=== PATIENT | female | born 1965 | race Caucasian/White ===

== ENCOUNTER → 2020-02-15 | Outpatient (CLI) | payer BC ==
--- NOTE | 2020-02-15 11:45 | KCIC ---
Bilateral digital screening mammograms: Reason for examination: Routine screening. No previous exams for comparison. New baseline. Interpretation was made with the benefit of CAD. The skin and nipples show no abnormalities. No abnormal axillary lymph nodes are seen. The breast parenchyma is extremely dense. (Breast density: Category D.) There are nodular densities present in the lower inner quadrant of the right breast, in the lower inner quadrant of the left breast and dense nodular parenchyma in the upper outer quadrants bilaterally. This is especially true at the 10:00 B position of the right breast. Further evaluation with ultrasound is recommended. There are no suspicious calcifications seen. Impression: Dense breast parenchyma with nodular densities bilaterally. Recommend further evaluation with bilateral breast ultrasound. Your patient's mammogram demonstrates that she has dense breast tissue (breast density category C or D), which could hide abnormalities, and if she has other risk factors for breast cancer that have been identified, she might benefit from supplemental screening tests that may be suggested by you as her ordering physician. Dense breast tissue, in and of itself, is a relatively common condition. Therefore, this information is not provided to cause undue concern, but rather to raise your awareness and to promote discussion with your patient regarding the presence of other risk factors, in addition to dense breast tissue. Your patient's mammography results will be sent to her. BI-RAD Category 0: Incomplete. Needs additional imaging evaluation. "Our facility is accredited by the [employer] Mammography Program." This patient's information has been entered into a reminder system for the patient to be notified with the results of her examination and a target date for the next mammogram. Electronically signed by: aLkeisha Resendez MD (02/15/2020 11:42 AM) [id number]
== END | disposition home or self-care (01) ==
LOC: KCIC MAMMO 10:49
PROVIDERS: ATTEND Family Medicine
DX: Z12.31 Encounter for screening mammogram for malignant neoplasm of breast (principal); N64.89 Other specified disorders of breast
CPT/HCPCS: 77067

== ENCOUNTER → 2020-02-29 | Outpatient (CLI) | payer BC ==
--- NOTE | 2020-02-29 12:28 | KCIC ---
Bilateral breast ultrasound: Reason for examination: Dense nodular parenchyma on screening mammogram. Bilateral whole breast ultrasound including evaluation of all 4 quadrants and the retroareolar and axillary regions of both breasts was performed. In the right breast at the 3:00 position 6 cm from the nipple, there is a 1.1 cm hypoechoic nodule which is probably fibrocystic or fibroadenomatous and shows no abnormal vascularity. No other cystic or solid nodules are seen. There is some ductal ectasia. No abnormal appearing lymph nodes are seen in the right axilla. The left breast shows a small 9.8 mm hypoechoic nodule possibly fibroadenomatous in the 3:00 position 6 cm from the nipple. No other cystic or solid lesions are seen. No abnormal appearing lymph nodes are seen in the left axilla. Impression: Small benign-appearing fibrocystic and fibroadenomatous type nodules at the 3:00 position 6 cm from the nipple in the right breast and at the 3:00 position 6 cm from the nipple in the left breast. Recommend 6 month follow-up with ultrasound. BI-RADS Category 3: Probably Benign. "Our facility is accredited by the [employer] Mammography [employer]." This patient's information has been entered into a reminder system for the patient to be notified with the results of her examination and a target date for the next mammogram. Electronically signed by: Lakeisha Resendez MD (02/29/2020 12:25 PM) [email or web address]
== END | disposition home or self-care (01) ==
LOC: KCIC US 10:28
PROVIDERS: ATTEND Family Medicine
DX: N63.12 Unspecified lump in the right breast, upper inner quadrant (principal); N63.21 Unspecified lump in the left breast, upper outer quadrant
CPT/HCPCS: 76641

== ENCOUNTER → 2020-06-19 | Outpatient (CLI) | payer BC ==
[~2020-06-19] MED LIST: ATOR40TA59 PO; BROM500T PO; CELE200C PO; CHOL500050 PO; DEXT20TA2 PO; DEXT30CA6 PO; HYDR200T5 PO; LIFI1DRO EACHEYE; MULT-735 PO; TOCI162P SQ; TRAM50TA PO; [UNRECOGNIZED DRUG - OTHER]; tumeric
== END ==
LOC: LAB 10:47
PROVIDERS: ATTEND Orthopaedic Surgery
DX: Z01.812 Encounter for preprocedural laboratory examination (principal); Z20.828 Contact with and (suspected) exposure to other viral communicable diseases
CPT/HCPCS: U0003

== ENCOUNTER 2020-06-22 06:05 | Day surgery (SDC) | payer BC ==
[~2020-06-22] VITALS: Ht 167.6 cm; Wt 158.8 kg
[~2020-06-22 06:05] MED LIST changes: -TRAM50TA PO
[2020-06-22] MEDS ORDERED: ONDANSETRON PF 4 MG/2 ML VIAL. ONE (06:28)
[2020-06-22] MEDS ORDERED: LIDOCAINE 2% PF 5 ML VIAL. ONE (06:28)
[2020-06-22] MEDS ORDERED: DEXAMETHASONE SOD PHOS 4 MG/ML VIAL ONE (06:28)
[2020-06-22] MEDS ORDERED: PROPOFOL 10 MG/ML (20ML) VIAL. IV ONE (06:28)
[2020-06-22] MEDS ORDERED: ONDANSETRON PF 4 MG/2 ML VIAL. IV PRN (07:00)
[2020-06-22] MEDS ORDERED: PROCHLORPERAZINE 10 MG/2 ML VIAL. IV PRN (07:00)
[2020-06-22] MEDS ORDERED: fentaNYL PF VIAL 100 MCG/2 ML VIAL IV PRN ×2 (07:00)
[2020-06-22] MEDS ORDERED: HYDROmorphone 2 MG/ML VIAL IV PRN (07:00)
[2020-06-22] MEDS ORDERED: LIDOCAINE 1% PF 2 ML VIAL. ID PRN (07:00)
[2020-06-22] MEDS ORDERED: IV RINGERS,LACTATED 1000ML 1,000 ML IV SCH (07:00)
[2020-06-22] MEDS ORDERED: LIDOCAINE 1% Multi-Dose 20 ML VIAL. ONE (07:11)
[2020-06-22] MEDS ORDERED: MIDAZOLAM HCL/PF 2 MG/2 ML VIAL. ONE (07:14)
[2020-06-22] MEDS ORDERED: LIDOCAINE 1% PF 30 ML VIAL. ONE (07:16)
[2020-06-22] MEDS ORDERED: ceFAZolin SODIUM IV Push 1 GM VIAL. IVP PRN (08:00)
[2020-06-22] MEDS ORDERED: fentaNYL PF VIAL 100 MCG/2 ML VIAL ONE (08:05)
[2020-06-22] MEDS ORDERED: TRAM50TA PO (08:40)
[2020-06-22] MEDS ORDERED: traMADol 50 MG TABLET PO PRN (08:45)
[2020-06-22] MEDS ORDERED: MORPHINE SULFATE 2 MG/ML VIAL. ONE (08:47)
[2020-06-22] MEDS: MORPHINE SULFATE 2 MG/ML VIAL. IV PRN ×2 (08:49→09:01)
--- NOTE | 2020-06-22 08:58 | DISCH ---
DISCHARGE INSTRUCTIONS Condition on Discharge Condition on Discharge: Stable Activity After Discharge Activity Instructions for Disc: Other, see below (Avoid hard grasping for about 3 weeks postoperatively to protect healing incision) Bathing Instructions: Shower-keep dressing dry Weight Bearing Status after Di: Partial weight bearing Diet after Discharge Diet after Discharge: Regular Wound Incision Care Wound/Incision Care: Change dressing (May remove dressing in [address] Band- Aid over incision and may shower but no soaking) Contacting the DRMike after DC Call your doctor for: Concerns you may have Follow-Up Follow up with: Dr. Narayan 10 days PEYTON NARAYAN MD Jun 22, 2020 08:58
[2020-06-22 09:11] VITALS: BP 121/73
[2020-06-22] MEDS ORDERED: traMADol 50 MG TABLET ONE (09:29)
--- NOTE | 2020-06-22 15:16 | PDOC4 ---
Operative Note Operative Note Date of surgery: 06/22/2020 Preoperative diagnosis: Trigger finger left middle finger Postoperative diagnosis: Same Operative procedure: Left middle finger trigger finger release Senior Living Advisor: Tremaine zelaya Surgeon: Helene Anesthesia: [place] block Estimated blood loss: 1 cc Complications: None Operative indications: Please see my dictated orthopedic clinic note for detailed operative indications and note that she had a symptomatic left middle trigger finger unresponsive the nonoperative management we had talked through risk benefits postoperative course of the surgical release the possibility of nerve or blood vessel damage scarring stiffness medical or other anesthetic complications among others she agrees to proceed with surgical evaluation and treatment Operative text: Patient was identified procedure verified patient placed in the supine position on the operating table. After adequate amounts of [place] block anesthesia were administered the left upper extremity was prepped and draped in the standard sterile fashion and after timeout was performed patient procedure identified and verified an incision was made over the distal palmar crease overlying the long finger flexor tendon. Neurovascular bundles were protected and the tendon sheath incised and the A1 sea sharply divided throughout its length eliminating the triggering. She was noted to have fluid in the tendon sheath visible as the release was performed flexor profundus and superficialis tendons were otherwise examined and noted to be intact there irrigation carried out normal saline solution skin closure accomplished with nylon suture sterile dressings were applied fingers were noted be warm pink following deflation of th e tourniquet patient was returned to recovery room in stable condition having tolerated procedure well. Tremaine zelaya was present for the procedure assisted in patient positioning prepping draping retraction and closure and dressings placement PEYTON SANTILLAN MD Jun 22, 2020 15:16
== END 2020-06-22 09:45 | disposition home or self-care (01) ==
LOC: SURG 06:05
PROVIDERS: ATTEND Orthopaedic Surgery
DX: M65.332 Trigger finger, left middle finger (principal); E78.00 Pure hypercholesterolemia, unspecified; M06.9 Rheumatoid arthritis, unspecified; Z98.51 Tubal ligation status; Z98.890 Other specified postprocedural states; Z79.899 Other long term (current) drug therapy; Z87.891 Personal history of nicotine dependence
CPT/HCPCS: 26055; J0690; J1100; J2250; J2270; J2405; J2704; J3010; J3490

== ENCOUNTER → 2020-09-04 | Outpatient (CLI) | payer BC ==
[~2020-09-04] MED LIST changes: +TRAM50TA PO
--- NOTE | 2020-09-04 12:58 | KCIC ---
EXAM: Bilateral breast sonogram. HISTORY: 55-year-old female presents for evaluation of findings within the 3:00 positions of both ludivina asts demonstrated on a sonogram performed 02/29/2020. TECHNIQUE: Sonographic imaging of both breasts targeted to the 3:00 positions was performed. COMPARISON: 02/29/2020. FINDINGS: Sonographic imaging of the right breast demonstrates an island of suspected dense breast pa renchyma at the 3:00 position 3 cm the nipple measuring approximately 8 mm. There is slightly decreas ed in size compared to the prior study, allowing for differences in imaging technique. Sonographic of the left breast demonstrates a similar-appearing island of suspected dense breast pare nchyma at the 3:00 position 6 cm the nipple measuring approximately 3.3 cm. This is more conspicuous compared to the prior study likely due to differences in imaging technique. There is no convincing pereyra spicious solid lesion in this location. There is no suspicious blood flow or posterior shadowing. IMPRESSION: 1. Suspected islands of dense breast parenchyma within the 3:00 positions of the left greater than ri ght breast. The possibility of a superimposed hamartoma or fibroadenomatoid lesion in this location o n the left is not excluded. 2. BI-RADS Category 3: Probably benign finding(s). Short term follow up with a bilateral breast sonog ama in 6 months is recommended to confirm benignity. This follow up interval corresponds with the pre viously established mammography interval. Electronically signed by: Laxmi Carlisle MD (09/04/2020 12:55 PM) [email or web address]
== END ==
LOC: KCIC US 12:20
PROVIDERS: ATTEND Family Medicine
DX: R92.2 Inconclusive mammogram (principal)
CPT/HCPCS: 76641